=== PATIENT | female | born 1990 | race Caucasian/White ===

== ENCOUNTER 2016-11-12 16:12 | Emergency (ER) | payer OTHER ==
[2016-11-12 16:18] VITALS: TEMP 98.2
[2016-11-12] MEDS ORDERED: NS 1,000 ML IV ONE (16:39)
[2016-11-12 17:00] LABS: % IMMATURE GRANULYOCYTES 0.6 % (0.0-1.1); ABSOLUTE IMMATURE GRANULOCYTES 0.03 10^3/uL (0.00-0.10); ADD DIFF? NO; ADD MORPH? NO; ADD SCAN? NO; ATYPICAL LYMPHOCYTE FLAG 50 (0-99); FRAGMENT RBC FLAG 0 (0-99); HEMATOCRIT 44.8 % (38.0-47.0); HEMOGLOBIN 15.5 g/dL (12.6-16.3); LEFT SHIFT FLG 0 (0-99); LIPEMIA HEMOLYSIS FLAG 90 (0-99); MEAN CELL HEMOGLOBIN 32.5 pg (27.9-34.1); MEAN CELL HEMOGLOBIN CONCENTR. 34.6 g/dL (32.4-36.7); MEAN CELL VOLUME 93.9 fL (81.5-99.8); MEAN PLATELET VOLUME 9.9 fL (8.7-11.7); PLATELET CLUMPS FLAG 0 (0-99); PLATELET COUNT 237 10^3/uL (150-400); RED BLOOD CELL COUNT 4.77 10^6/uL (4.18-5.33)
--- NOTE | 2016-11-12 17:00 | EDPHY ---
H & P Time Seen by Provider: 11/12/16 16:35 HPI/ROS: CHIEF COMPLAINT: Rectal bleeding HISTORY OF PRESENT ILLNESS: 26-year-old female presents to the emergency department by private vehicle complaining of rectal bleeding that began just prior to arrival. The patient has a history of alcoholism and typically drinks 15 drinks per day. She has been trying to get sober on her own. She last drank heavily 1 week ago and then had 1 drink 2 or 3 days ago. She feels a bit tremulous and nauseous although no vomiting. She has never noted blood in her stool. She denies any associated abdominal pain with this. Her last menstrual period ended 2 days ago. She is certain that this was rectal bleeding and not vaginal bleeding. Denies any reported trauma. Denies back pain or urinary symptoms. Denies . REVIEW OF SYSTEMS: Constitutional: No fever, no chills. Eyes: No double or blurry vision. ENT: No sore throat. Respiratory: No cough, no shortness of breath. Cardiac: No chest pain. Gastrointestinal: No abdominal pain, vomiting or diarrhea. Genitourinary: No dysuria. Musculoskeletal: No neck or back pain. Skin: No rashes. Neurological: No headache. Past Medical/Surgical History: Alcoholism Social History: Single and lives with her boyfriend and [facility] Smoking Status: Never smoked Physical Exam: General Appearance: Alert, no distress. Vital signs are stable. Eyes: Pupils equal and round. Extraocular motions are all intact. ENT: Mouth: Mucous membranes moist. Respiratory: No wheezing, rhonchi, or rales, lungs are clear to auscultation. Cardiovascular: Regular rate and rhythm. Gastrointestinal: Abdomen is soft and nontender, no masses, no rebound or guarding, bowel sounds normal. No CVA tenderness bilaterally. Rectal exam: Performed with nurse, at bedside. Patient has a small external hemorrhoid which is not thrombosed or bleeding. Normal sphincter tone. There was no blood or stool on gloved finger noted. Neurological: Alert and oriented x 3, cranial nerves II through XII grossly intact Skin: Warm and dry, no rashes. Musculoskeletal: Nontender to palpate along the cervical, thoracic or lumbar spine. Neck is supple. Extremities: Full range of motion and no peripheral edema. Psychiatric: Patient is oriented X 3, there is no agitation. Constitutional: Initial Vital Signs Temperature (C) 36.8 C 11/12/16 16:14 Heart Rate 102 H 11/12/16 16:14 Respiratory Rate 20 11/12/16 16:14 Blood Pressure 109/84 H 11/12/16 16:14 O2 Sat (%) 98 11/12/16 16:14 O2 Delivery Mode Room Air Allergies/Adverse Reactions: No Known Allergies Allergy (Unverified 11/12/16 16:13) Home Medications: Medication Instructions Recorded Ativan 11/12/16 Divalproex 11/12/16 Elinest 11/12/16 Venlafaxine 75MG (*) 11/12/16 Medical Decision Making ED Course/Re-evaluation: 26-year-old female presents to the emergency department with rectal bleeding. Rectal exam revealed no stool or blood on gloved finger. Vital signs are stable. Her laboratory studies are unremarkable. I spoke with Dr. Mitchell Ramirez, [facility] entry level recruiter as this patient is a patient at the [facility], and the patient will see him tomorrow or to recheck. She was advised to return to the emergency department sooner if she developed recurring rectal bleeding, if she felt any syncopal symptoms or felt worse in any way. I do not think imaging studies are necessary. This was discussed with the patient and she verbalized understanding and agreed. Differential Diagnosis: Including GI bleed, hemorrhoid, rectal fissure, polyp, anemia - Data Points Laboratory Results: Laboratory Results 11/12/16 16:48 11/12/16 16:48 Medications Given: Discontinued Medications Sodium Chloride (Ns) 1,000 mls @ 0 mls/hr IV ONCE ONE PRN Reason: Wide Open Stop: 11/12/16 16:40 Last Admin: 11/12/16 16:40 Dose: 1,000 mls Departure - Departure Disposition: Home, Routine, Self-Care Clinical Impression: Rectal bleeding, Alcoholism Condition: Good Instructions: Rectal Bleeding (ED), Alcohol Dependence (ED) Additional Instructions: You need to follow up with entry level recruiter tomorrow or to recheck. Please return to the emergency department sooner if you developed recurring rectal bleeding, if you feel lightheaded or dizzy or feel like you're going to pass out, or if you feel worse in any way. Referrals: Mitchell Ramirez MD [[facility] Primary Care Provider] - 1-2 days without fail ([facility] entry level recruiter)
[2016-11-12 17:27] LABS: ANION GAP 13 mEq/L (8-16); CALCIUM 9.7 mg/dL (8.5-10.4); CARBON DIOXIDE 24 mEq/l (22-31); CHLORIDE 102 mEq/L (97-110); CREATININE 0.8 mg/dL (0.6-1.0); GLOMERULAR FILTRATION RATE > 60; GLUCOSE 105 mg/dL (70-100); POTASSIUM 4.5 mEq/L (3.5-5.2); SODIUM 139 mEq/L (134-144)
[2016-11-12 18:19] LABS: INR 1.25 (0.83-1.16); PROTIME(PATIENT) 15.7 SEC (12.0-15.0)
[2016-11-12 18:20] LABS: APTT 28.4 SEC (23.0-38.0)
[2016-11-12 18:54] VITALS: BP 114/67; PULSE 88; RESP 16; O2SAT 96
== END 2016-11-12 18:51 | disposition home or self-care (01) ==
DX: K62.5 Hemorrhage of anus and rectum (principal); F10.20 Alcohol dependence, uncomplicated

== ENCOUNTER → 2017-11-13 | Outpatient (CLI) | payer OTHER | LOC: BMCIMAGING 09:56 | PROVIDERS: ATTEND Physician Assistant | DX: M25.562 Pain in left knee (principal) ==

== ENCOUNTER → 2018-03-12 | Outpatient (CLI) | payer OTHER | LOC: BMCIMAGING 15:27 | PROVIDERS: ATTEND Physician Assistant | DX: M79.675 Pain in left toe(s) (principal) ==